=== PATIENT | female | born 2000 | race Caucasian/White ===

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

== ENCOUNTER 2021-07-19 16:07 | Outpatient (CLI) | payer BC, OTHER | END 2021-07-19 19:46 | disposition home or self-care (01) | LOC: CT 16:07 | PROVIDERS: ATTEND Nurse Practitioner Family | DX: G44.52 New daily persistent headache (NDPH) (principal) ==

== ENCOUNTER 2021-12-23 10:32 | Outpatient (CLI) | payer BC, OTHER | END 2021-12-23 22:07 | disposition home or self-care (01) | LOC: US 10:32 | PROVIDERS: ATTEND Nurse Practitioner Family | DX: R74.01 Elevation of levels of liver transaminase levels (principal) ==

== ENCOUNTER 2022-02-05 13:24 | Emergency (ER) | payer BC, OTHER ==
[~2022-02-05] VITALS: Ht 162.6 cm; Wt 111.6 kg
[2022-02-05 13:27] VITALS: BP 132/80; TEMP 98.7
[2022-02-05] MEDS ORDERED: MELOXICAM7.5 MG PO (15:00)
== END 2022-02-05 15:30 | disposition home or self-care (01) ==
LOC: ED 13:24
DX: S82.831A Other fracture of upper and lower end of right fibula, initial encounter for closed fracture (principal); W10.8XXA Fall (on) (from) other stairs and steps, initial encounter; Y92.89 Other specified places as the place of occurrence of the external cause
CPT/HCPCS: 96372; 99283; J1885